=== PATIENT | female | born 1950 | race Native Hawaiian/Other Pacific Islander ===

== ENCOUNTER 2016-12-16 09:52 | Emergency (ER) | payer OTHER ==
[~2016-12-16] VITALS: Ht 172.7 cm; Wt 97.1 kg
[2016-12-16 10:00] VITALS: BP 144/78; TEMP 98.3
[2016-12-16 10:20] LABS: PLATELET COUNT 212 K/uL (152-353)
[2016-12-16 10:27] LABS: POTASSIUM 4.1 mmol/L (3.6-5.2); SODIUM 139 mmol/L (136-145)
== END 2016-12-16 10:47 | disposition home or self-care (01) ==
LOC: ED 09:52
DX: B26.9 Mumps without complication (principal)
CPT/HCPCS: 36415; 80053; 85027; 99283

== ENCOUNTER 2017-11-13 08:24 | Outpatient (CLI) | payer OTHER | END 2017-11-13 18:01 | disposition home or self-care (01) | LOC: MAMMO 08:24 | DX: N63.21 Unspecified lump in the left breast, upper outer quadrant (principal) ==

== ENCOUNTER 2018-05-20 08:26 | Day surgery (SDC) | payer OTHER ==
[~2018-05-20] VITALS: Ht 30.5 cm; Wt 0.5 kg
[2018-05-20 09:15] LABS: PLATELET COUNT 213 K/uL (152-353)
[2018-05-20 09:26] LABS: POTASSIUM 4.3 mmol/L (3.6-5.2)
== END 2018-05-20 13:01 | disposition home or self-care (01) ==
LOC: OR 08:26
PROVIDERS: Student in an Organized Health Care Education/Training Program
PROC: 0FT44ZZ Resection of Gallbladder, Percutaneous Endoscopic Approach (ICD-10-PCS; principal; 2018-05-20)
DX: K81.1 Chronic cholecystitis (principal)
CPT/HCPCS: 80053; 85027; J0132; J0330; J0360; J0690; J1100; J1170; J2001; J2250; J2405; J2704; J2710; J3010; J3490

== ENCOUNTER 2018-11-17 11:20 | Outpatient (CLI) | payer OTHER | END 2018-11-17 23:29 | disposition home or self-care (01) | LOC: MAMMO 11:20 | DX: Z12.31 Encounter for screening mammogram for malignant neoplasm of breast (principal); Z85.3 Personal history of malignant neoplasm of breast; Z90.10 Acquired absence of unspecified breast and nipple ==

== ENCOUNTER 2018-11-21 09:58 | Outpatient (CLI) | payer OTHER | END 2018-11-21 20:07 | disposition home or self-care (01) | LOC: RAD 09:58 | DX: M25.511 Pain in right shoulder (principal) ==

== ENCOUNTER 2019-04-20 12:00 | Outpatient (CLI) | payer OTHER | END 2019-04-20 12:03 | disposition short-term general hospital (02) | LOC: AMB 12:00 | DX: M25.552 Pain in left hip (principal); W01.0XXA Fall on same level from slipping, tripping and stumbling without subsequent striking against object, initial encounter; Y93.89 Activity, other specified; Y92.018 Other place in single-family (private) house as the place of occurrence of the external cause | CPT/HCPCS: A0425; A0427 ==

== ENCOUNTER 2019-04-20 12:09 | Emergency (ER) | payer OTHER ==
[~2019-04-20] VITALS: Ht 170.2 cm; Wt 98.9 kg
[2019-04-20 12:09] VITALS: TEMP 97.3
[2019-04-20 13:55] LABS: PLATELET COUNT 199 K/uL (152-353)
[2019-04-20 14:16] LABS: POTASSIUM 3.8 mmol/L (3.6-5.2)
[2019-04-20 14:59] VITALS: BP 167/90
== END 2019-04-20 15:00 | disposition short-term general hospital (02) ==
LOC: ED 12:09
PROVIDERS: Emergency Medicine
DX: S72.145A Nondisplaced intertrochanteric fracture of left femur, initial encounter for closed fracture (principal); W01.0XXA Fall on same level from slipping, tripping and stumbling without subsequent striking against object, initial encounter; Y92.89 Other specified places as the place of occurrence of the external cause
CPT/HCPCS: 80053; 85027; 96374; 96375; 99284; J1170; J2270; J2405

== ENCOUNTER 2020-04-14 12:54 | Outpatient (CLI) | payer OTHER | END 2020-04-14 22:03 | disposition home or self-care (01) | LOC: MAMMO 12:54 | DX: Z85.3 Personal history of malignant neoplasm of breast (principal); Z90.10 Acquired absence of unspecified breast and nipple | CPT/HCPCS: G0279 ==

== ENCOUNTER 2020-06-26 19:20 | Emergency (ER) | payer OTHER ==
[~2020-06-26] VITALS: Ht 170.2 cm; Wt 97.5 kg
[2020-06-26 19:28] VITALS: TEMP 98.4
[2020-06-26 20:03] LABS: PLATELET COUNT 207 K/uL (152-353)
[2020-06-26 20:09] LABS: POTASSIUM 4.1 mmol/L (3.6-5.2); SODIUM 141 mmol/L (136-145)
[2020-06-26 20:16] LABS: PARTIAL THROMBOPLASTIN TIME 23.8 SECONDS (24.5-33.6)
[2020-06-26 22:11] VITALS: BP 159/98
== END 2020-06-26 22:15 | disposition still patient (30) ==
LOC: ED 19:20
PROVIDERS: Hospitalist
DX: R00.2 Palpitations (principal); R06.02 Shortness of breath
CPT/HCPCS: 36415; 80053; 82550; 83880; 84484; 85027; 85379; 85610; 85730; 93005; 99283

== ENCOUNTER 2021-05-10 09:47 | Outpatient (CLI) | payer OTHER | END 2021-05-10 20:09 | disposition home or self-care (01) | LOC: MAMMO 09:47 | PROVIDERS: ATTEND Specialist | DX: Z08 Encounter for follow-up examination after completed treatment for malignant neoplasm (principal); Z85.3 Personal history of malignant neoplasm of breast; Z90.10 Acquired absence of unspecified breast and nipple | CPT/HCPCS: G0279 ==

== ENCOUNTER 2021-06-06 14:50 | Outpatient (CLI) | payer OTHER | END 2021-06-06 21:57 | disposition home or self-care (01) | LOC: US 14:50 | PROVIDERS: ATTEND Internal Medicine | DX: K11.8 Other diseases of salivary glands (principal) ==

== ENCOUNTER 2021-08-02 09:02 | Outpatient (CLI) | payer OTHER | END 2021-08-02 20:11 | disposition home or self-care (01) | LOC: CT 09:02 | PROVIDERS: ATTEND Internal Medicine | DX: K11.20 Sialoadenitis, unspecified (principal) | CPT/HCPCS: 36415; 82565; 84520; Q9963 ==

== ENCOUNTER 2021-08-21 10:53 | Outpatient (CLI) | payer OTHER ==
[2021-08-21 11:14] LABS: PLATELET COUNT 194 K/uL (152-353)
[2021-08-21 11:22] LABS: POTASSIUM 3.9 mmol/L (3.6-5.2)
== END 2021-08-21 18:52 | disposition home or self-care (01) ==
LOC: LABW 10:53
PROVIDERS: ATTEND Internal Medicine Hematology & Oncology
DX: C50.912 Malignant neoplasm of unspecified site of left female breast (principal); E55.9 Vitamin D deficiency, unspecified; Z51.81 Encounter for therapeutic drug level monitoring; Z79.899 Other long term (current) drug therapy; M81.0 Age-related osteoporosis without current pathological fracture
CPT/HCPCS: 36415; 80053; 85027; 86316

== ENCOUNTER 2021-09-19 09:20 | Outpatient (CLI) | payer OTHER | END 2021-09-19 19:27 | disposition home or self-care (01) | LOC: CT 09:20 | PROVIDERS: ATTEND Otolaryngology | DX: K11.20 Sialoadenitis, unspecified (principal) | CPT/HCPCS: Q9963 ==

== ENCOUNTER 2022-04-30 19:49 | Emergency (ER) | payer OTHER ==
[~2022-04-30] VITALS: Ht 170.2 cm; Wt 97.5 kg
[2022-04-30 22:03] VITALS: BP 151/65; TEMP 99.2
== END 2022-04-30 22:03 | disposition home or self-care (01) ==
LOC: ED 19:49
DX: J20.9 Acute bronchitis, unspecified (principal); Z20.822 Contact with and (suspected) exposure to COVID-19
CPT/HCPCS: 36415; 87502; 87635; 87651; 96360; 96365; 96375; 99284; J0696; J2405; U0003

== ENCOUNTER 2022-05-14 09:57 | Outpatient (CLI) | payer OTHER | END 2022-05-14 20:04 | disposition home or self-care (01) | LOC: MAMMO 09:57 → US 11:00 → MAMMO 20:04 | PROVIDERS: ATTEND Internal Medicine Medical Oncology | DX: C50.912 Malignant neoplasm of unspecified site of left female breast (principal); M81.0 Age-related osteoporosis without current pathological fracture; Z85.3 Personal history of malignant neoplasm of breast; Z90.10 Acquired absence of unspecified breast and nipple; Z08 Encounter for follow-up examination after completed treatment for malignant neoplasm | CPT/HCPCS: G0279 ==

== ENCOUNTER 2022-07-28 18:25 | Emergency (ER) | payer OTHER ==
[~2022-07-28] VITALS: Ht 170.2 cm; Wt 92.5 kg
[2022-07-28 19:07] LABS: PLATELET COUNT 219 K/uL (152-353)
[2022-07-28 19:13] LABS: POTASSIUM 3.6 mmol/L (3.6-5.2)
[2022-07-28 21:30] VITALS: BP 128/68; TEMP 98.3
== END 2022-07-28 21:30 | disposition home or self-care (01) ==
LOC: ED 18:25
PROVIDERS: Emergency Medicine
DX: K57.12 Diverticulitis of small intestine without perforation or abscess without bleeding (principal)
CPT/HCPCS: 36415; 80053; 81000; 82150; 83690; 85027; 96360; 96365; 96375; 99284; J0696; J1885; Q9963

== ENCOUNTER 2022-09-24 09:24 | Emergency (ER) | payer OTHER ==
[~2022-09-24] VITALS: Ht 170.2 cm; Wt 93.9 kg
[2022-09-24 09:26] VITALS: TEMP 98.9
[2022-09-24 10:07] LABS: PLATELET COUNT 165 K/uL (152-353)
[2022-09-24 10:17] LABS: POTASSIUM 4.1 mmol/L (3.6-5.2)
[2022-09-24 11:30] VITALS: BP 131/52
== END 2022-09-24 12:20 | disposition home or self-care (01) ==
LOC: ED 09:24
PROVIDERS: Emergency Medicine Emergency Medical Services
DX: J20.9 Acute bronchitis, unspecified (principal); R42 Dizziness and giddiness; U07.1 COVID-19
CPT/HCPCS: 36415; 80053; 81002; 83735; 84484; 85027; 87502; 87635; 93005; 96360; 96361; 99284; U0001

== ENCOUNTER 2023-02-20 10:18 | Observation (INO) | payer OTHER ==
[~2023-02-20] VITALS: Ht 170.2 cm; Wt 95.0 kg
[2023-02-20] VITALS (12 sets, daily range): BP systolic 140–1717; BP diastolic 61–78; TEMP 97.3–98.5; Ht 170.2 cm; Wt 95.0 kg
[2023-02-20 11:23] LABS: PLATELET COUNT 177 K/uL (152-353)
[2023-02-20 11:37] LABS: PARTIAL THROMBOPLASTIN TIME 21.2 SECONDS (23.9-36.7)
[2023-02-20] MEDS ORDERED: MOBIC15 MG PO (15:40)
[2023-02-20] MEDS ORDERED: ONDA4TAB3 PO (15:41)
[2023-02-20] MEDS ORDERED: ATIVAN2 MG PO (15:41)
[2023-02-20] MEDS ORDERED: FIORICET 50-3001 CAP PO (15:42)
[2023-02-20] MEDS ORDERED: ROPINIROLE1 MG PO (15:42)
[2023-02-20] MEDS ORDERED: BENAZEPRIL HYDR40 MG PO (15:43)
[2023-02-20] MEDS ORDERED: OMEP40CA PO (15:43)
[2023-02-20] MEDS ORDERED: ANAS1TAB PO (15:43)
[2023-02-20] MEDS ORDERED: METO50TA27 PO (15:44)
[2023-02-20] MEDS ORDERED: FISH PO (15:44)
[2023-02-20] MEDS ORDERED: [UNRECOGNIZED DRUG - OTHER] PO (15:45)
[2023-02-21] VITALS: BP 141/57; TEMP 98.4
[2023-02-21 08:00] VITALS: BP 158/76; TEMP 98.6
[2023-02-21] MEDS ORDERED: METO50TA27 PO (09:58)
== END 2023-02-21 12:15 | disposition home or self-care (01) ==
LOC: ED 10:18 → MED/SURG 13:25
PROVIDERS: Family Medicine; ADMIT Internal Medicine; ATTEND Internal Medicine
DX: R00.1 Bradycardia, unspecified (principal); R00.2 Palpitations; I10 Essential (primary) hypertension; R42 Dizziness and giddiness; F41.8 Other specified anxiety disorders; Z85.3 Personal history of malignant neoplasm of breast; G25.81 Restless legs syndrome
CPT/HCPCS: 36415; 80053; 82150; 82550; 83690; 84443; 84484; 85027; 85610; 85730; 93005; 96372; 99221; 99283; G0378; J1650